=== PATIENT | female | born 1960 | race Caucasian/White ===

== ENCOUNTER 2018-03-25 10:27 | Outpatient (REF) | payer BC, SELFPAY ==
[2018-03-25 21:17] LABS: Cholesterol 241 mg/dL (50-200); HDL Cholesterol 83 mg/dL (40-60); LDL CHOLESTEROL 149 mg/dL (<100); Triglyceride 61 mg/dL (30-150)
== END 2018-03-25 10:47 ==
LOC: NCHCN 10:27
PROVIDERS: PCP Family Medicine; Visit Provider Physician Assistant Medical
DX: Z13.220 Encounter for screening for lipoid disorders (principal)
CPT/HCPCS: 80061; 83721

== ENCOUNTER 2019-01-28 14:23 | Outpatient (REF) | payer BC, SELFPAY ==
--- NOTE | 2019-01-28 14:15 | SKI_PTH ---
PATIENT: Carole Burgos LOC: NCN #:[id number] AGE/SX: 58/F ROOM: RE01/28/[address]: Milagro Bustamante : 1960 BED: DIS: 01/28/2019 SPEC #: [id number] RECD: 01/29/19 12:44 STATUS: ROBERT RELevon #: [id number] ETHAN: 01/28/19 14:[address]: Milagro Bustamante DEPT: Surgical Specimen RECD BY: Nevaeh Rocha ENTERED: 01/29/19 12:47 SP TYPE: REINALDO CHENG DR: Mariaelena Arndt V Tissues: 1 - SKIN BIOPSY(SHAVE/PUNCH) Procedures: SKIN LEVEL 4 Comments: [id number]
== END 2019-01-28 14:43 ==
LOC: NCHCN 14:23
PROVIDERS: PCP Family Medicine; Visit Provider Nurse Practitioner Family
DX: L82.0 Inflamed seborrheic keratosis (principal); B07.8 Other viral warts
CPT/HCPCS: 88305

== ENCOUNTER 2019-11-04 08:28 | Outpatient (REF) | payer MEDICAID, SELFPAY ==
[2019-11-04 19:36] LABS: Anion Gap 7.6 mmol/L (3-11); BUN 19 mg/dL (7-18); CO2 30.4 mmol/L (21.0-32.0); CREATININE 0.97 mg/dL (0.55-1.02); Calcium 9.4 mg/dL (8.5-10.1); Calculated LDL 195 mg/dL (<100); Chloride 101 mmol/L (98-107); Cholesterol 292 mg/dL (<200); Estimated GFR 58.58 (mL/min/1.73m2); Glucose 87 mg/dL (74-106); HDL Cholesterol 84 mg/dL (40-60); Potassium 4.5 mmol/L (3.5-5.1); Sodium 139 mmol/L (136-145); Triglyceride 68 mg/dL (<150)
== END 2019-11-04 08:48 ==
LOC: NCHCN 08:28
PROVIDERS: PCP Family Medicine; Visit Provider Nurse Practitioner Family
DX: F32.9 Major depressive disorder, single episode, unspecified (principal); Z13.220 Encounter for screening for lipoid disorders; Z13.228 Encounter for screening for other metabolic disorders; Z13.1 Encounter for screening for diabetes mellitus; Z00.00 Encounter for general adult medical examination without abnormal findings
CPT/HCPCS: 80048; 80061

== ENCOUNTER 2021-12-04 15:57 | Outpatient (REF) | payer MEDICAID, SELFPAY ==
[2021-12-04 18:58] LABS: HCT 40.4 % (36.0-46.0); HGB 13.1 g/dL (11.2-15.7); MCH 30.7 pg (27.0-33.0); MCHC 32.4 % (32.0-36.0); MCV 95 fL (80-95); MPV 9.4 fL (8.0-11.0); Platelet Count 290 10^3/uL (130-400); RBC 4.27 10^6/uL (3.93-5.22); RDW 12.3 % (11.7-14.6); RDW-SD 43.2 fL; WBC 6.43 10^3/uL (4.4-10.8)
[2021-12-04 19:08] LABS: ESR 32 mm/hr (0-30)
[2021-12-05 17:35] LABS: Rheumatoid Factor <8.6 IU/mL (<12.0)
[2021-12-06 14:53] LABS: ANA Interpretation Positive (Negative); ANA Titer Pattern 1:80 Speckled; ANCA Interpretation Negative (Negative)
== END 2021-12-04 15:58 | disposition home or self-care (01) ==
LOC: NCHCN 15:57
PROVIDERS: PCP Family Medicine; Visit Provider Nurse Practitioner Family
DX: M79.641 Pain in right hand (principal); M79.642 Pain in left hand; M25.59 Pain in other specified joint
CPT/HCPCS: 85027; 85652; 86255; 86038; 86140; 86431

== ENCOUNTER 2021-12-26 15:14 | Outpatient (REF) | payer MEDICAID, SELFPAY ==
[2021-12-26 15:26] LABS: Calculated LDL 182 mg/dL (<100); Cholesterol 277 mg/dL (<200); HDL Cholesterol 85 mg/dL (40-60); Triglyceride 53 mg/dL (<150)
== END 2021-12-26 15:15 | disposition home or self-care (01) ==
LOC: NCHCN 15:14
PROVIDERS: PCP Family Medicine; Visit Provider Nurse Practitioner Family
DX: Z13.220 Encounter for screening for lipoid disorders (principal); Z00.00 Encounter for general adult medical examination without abnormal findings
CPT/HCPCS: 80061

== ENCOUNTER 2022-02-08 10:11 | Outpatient (REF) | payer MEDICAID, SELFPAY ==
[2022-02-08 15:29] LABS: Bacteria Rare HPF (Negative); C & S Indicated? C&S Done As Ordered; Casts Negative LPF (Negative); Crystals Negative HPF (Negative); Epithelial Cells Few HPF (Negative); Mucus Negative (Negative); RBC 0-2 HPF (0-2)
[2022-02-08 15:55] LABS: Anion Gap 6.4 mmol/L (3-11); BUN 24 mg/dL (7-18); CO2 27.6 mmol/L (21.0-32.0); CREATININE 0.8 mg/dL (0.55-1.02); Calcium 9.5 mg/dL (8.5-10.1); Chloride 105 mmol/L (98-107); Glucose 99 mg/dL (74-106); Potassium 4.1 mmol/L (3.5-5.1); Sodium 139 mmol/L (136-145)
== END 2022-02-08 10:12 | disposition home or self-care (01) ==
LOC: NCHCN 10:11
PROVIDERS: PCP Family Medicine; Visit Provider Nurse Practitioner Family
DX: R39.11 Hesitancy of micturition (principal); Z00.00 Encounter for general adult medical examination without abnormal findings
CPT/HCPCS: 80048; 81015; 87086

== ENCOUNTER 2022-03-10 17:46 | Outpatient (REF) | payer MEDICAID, SELFPAY ==
[2022-03-12 14:06] LABS: COVID-19 RT-PCR UVMMC Result Negative (Negative)
== END 2022-03-10 17:47 | disposition home or self-care (01) ==
LOC: LBN 17:46
PROVIDERS: PCP Family Medicine; Visit Provider Physician Assistant Medical
DX: Z20.822 Contact with and (suspected) exposure to COVID-19 (principal); L50.8 Other urticaria
CPT/HCPCS: U0003

== ENCOUNTER 2022-03-12 16:44 | Outpatient (REF) | payer MEDICAID, SELFPAY ==
[2022-03-12 21:19] LABS: HCT 37.4 % (36.0-46.0); HGB 12.4 g/dL (11.2-15.7); MCH 31.2 pg (27.0-33.0); MCHC 33.2 % (32.0-36.0); MCV 94 fL (80-95); MPV 9.8 fL (8.0-11.0); Platelet Count 278 10^3/uL (130-400); RBC 3.98 10^6/uL (3.93-5.22); RDW 12.4 % (11.7-14.6); RDW-SD 43.1 fL; WBC 5.38 10^3/uL (4.4-10.8)
[2022-03-12 21:22] LABS: ESR 36 mm/hr (0-30)
[2022-03-12 22:01] LABS: Absolute Eosinophil Count 0.11 10^3/uL (0.0-0.7); Absolute Lymphocyte Count 0.86 10^3/uL (1.2-3.4); Absolute Monocyte Count 0.16 10^3/uL (0.1-0.8); Absolute Neutrophil Count 4.25 10^3/uL (1.2-6.7)
[2022-03-12 22:02] LABS: Diff Comment Manual Differential; RBC Morphology Normal
[2022-03-12 22:29] LABS: C-Reactive Protein 3.16 mg/dL (0.0-0.3); FREE T4 1.13 ng/dL (0.76-1.46); TSH 0.86 uIU/mL (0.36-3.74)
[2022-03-14 11:02] LABS: Lyme Ab w Rflx to Lyme Confirm Negative (Negative)
== END 2022-03-12 16:45 | disposition home or self-care (01) ==
LOC: NCHCN 16:44
PROVIDERS: PCP Family Medicine; Visit Provider Nurse Practitioner Family
DX: M79.605 Pain in left leg (principal); R53.83 Other fatigue; R09.81 Nasal congestion
CPT/HCPCS: 85652; 84439; 84443; 85025; 86140; 86618

== ENCOUNTER → 2022-03-13 21:42 | Outpatient (CLI) | payer MEDICAID, SELFPAY ==
--- NOTE | 2022-03-13 11:26 | DI.US_ITS ---
Exam(s) US LOWER EXTREMITY VENOUS LT EXAM: US LOWER EXTREMITY VENOUS LT CLINICAL HISTORY: LEFT LEG PAIN M79.605 EDEMA LLE, PALPABLE ABNORMALITY LEFT CALF, CALF 0.5CM. TECHNIQUE: Ultrasound performed using standard protocol. COMPARISON: US LEFT BREAST ULTRASOUND from 12/07/2011 FINDINGS: Duplex venous ultrasound was performed according to the usual protocol. The deep veins are freely com pressible throughout and there is normal flow augmentation with manual calf compression. 2D and Doppl er evaluation are unremarkable. IMPRESSION: No evidence of deep venous thrombosis of the left lower extremity. DATA REPOSITORY:
== END ==
PROVIDERS: PCP Family Medicine; Visit Provider Nurse Practitioner Family
DX: M79.605 Pain in left leg (principal)
CPT/HCPCS: 93971

== ENCOUNTER 2023-03-06 11:11 | Outpatient (REF) | payer MEDICAID, SELFPAY ==
[2023-03-06 17:55] LABS: Calculated LDL 173 mg/dL (<100); Cholesterol 270 mg/dL (<200); Glucose 92 mg/dL (74-106); HDL Cholesterol 88 mg/dL (40-60); Triglyceride 48 mg/dL (<150)
== END 2023-03-06 11:12 | disposition home or self-care (01) ==
LOC: NCHCN 11:11
PROVIDERS: PCP Family Medicine; Visit Provider Nurse Practitioner Family
DX: Z13.220 Encounter for screening for lipoid disorders (principal); Z13.1 Encounter for screening for diabetes mellitus; Z00.00 Encounter for general adult medical examination without abnormal findings
CPT/HCPCS: 80061; 82947

== ENCOUNTER 2024-06-23 14:59 | Outpatient (REF) | payer MEDICAID, SELFPAY ==
[2024-06-23 15:02] LABS: ESR 13 mm/hr (0-30)
[2024-06-23 15:22] LABS: ALT 25 U/L (14-59); AST 21 U/L (15-37); Alkaline Phosphatase 101 U/L (46-116); Anion Gap 7.9 mmol/L (3-11); BUN 19 mg/dL (7-18); Bilirubin, Total 0.58 mg/dL (0.2-1.0); C-Reactive Protein < 0.50 mg/dL (<or=0.5); CO2 28.1 mmol/L (21.0-32.0); CREATININE 0.9 mg/dL (0.55-1.02); Calcium 9.4 mg/dL (8.5-10.1); Chloride 104 mmol/L (98-107); Creatine Kinase 229 U/L (26-192); Estimated GFR 71.39 (mL/min/1.73m2); Glucose 93 mg/dL (74-106); Magnesium 2.2 mg/dL (1.8-2.4); Potassium 4.1 mmol/L (3.5-5.1); Sodium 140 mmol/L (136-145); TSH (W/Ref FT4) 1.84 uIU/mL (0.36-3.74); Total Protein 7.5 g/dL (6.4-8.2)
[2024-06-23 16:09] LABS: Calculated LDL 150 mg/dL (<100); Cholesterol 269 mg/dL (<200); HDL Cholesterol 104 mg/dL (40-60); Triglyceride 77 mg/dL (<150); Vitamin D 25 Total 66.8 ng/mL (30-100)
== END 2024-06-23 15:00 | disposition home or self-care (01) ==
LOC: NCHCN 14:59
PROVIDERS: PCP Family Medicine; Visit Provider Physician Assistant Medical
DX: F32.9 Major depressive disorder, single episode, unspecified (principal); M79.7 Fibromyalgia
CPT/HCPCS: 80053; 80061; 82306; 82550; 85652; 83735; 84443; 86140

== ENCOUNTER 2024-06-30 21:32 | Outpatient (REF) | payer MEDICAID, SELFPAY ==
[2024-06-30 21:45] LABS: Creatine Kinase 236 U/L (26-192)
== END 2024-06-30 21:33 | disposition home or self-care (01) ==
LOC: NCHCN 21:32
PROVIDERS: PCP Family Medicine; Visit Provider Physician Assistant Medical
DX: R74.8 Abnormal levels of other serum enzymes (principal)
CPT/HCPCS: 82550